=== PATIENT | female | born 1965 | race Caucasian/White ===

== ENCOUNTER 2018-12-10 18:31 | Observation (INO) | payer OTHER ==
[2018-12-10 19:00] LABS: PLATELET COUNT 309 10^3/uL (150-400)
--- NOTE | 2018-12-10 19:05 | EDPHY ---
H & P Stated Complaint: Heart "fluttering" x2D, worse today c weaknees/dizziness. Time Seen by Provider: 12/10/18 18:50 HPI/ROS: CHIEF COMPLAINT: Heart fluttering HISTORY OF PRESENT ILLNESS: Patient is a 53-year-old female though significant past medical history comes to the emergency department complaining that her heart has been fluttering for the last several days. She has had this before and has explored the wearing Holter monitor but has not yet done that. She states that her symptoms have worsened over last few days and that she feels like her heart is skipping beats. Today while driving she felt presyncopal and felt like she was going to crash her car but her symptoms resolved by simply rolling down her windows in taking a deep breath. No headache. No chest pain. No shortness of breath. No focal weakness or deficits. No GI symptoms. Severity: Moderate Modifying factors: Continued REVIEW OF SYSTEMS: Constitutional: denies: chills, fever, recent illness, recent injury EENTM: denies: blurred vision, double vision, nose congestion Respiratory: denies: cough, shortness of breath Cardiac: See HPI Gastrointestinal/Abdominal: denies: abdominal pain, diarrhea, nausea, vomiting, blood streaked stools Genitourinary: denies: dysuria, frequency, hematuria, pain Musculoskeletal: denies: joint pain, muscle pain Skin: denies: lesions, rash, jaundice, bruising Neurological: denies: headache, numbness, paresthesia, tingling, dizziness, weakness Hematologic/Lymphatic: denies: blood clots, easy bleeding, easy bruising Immunologic/allergic: denies: HIV/AIDS, transplant 10 systems reviewed and negative except as noted EXAM: GENERAL: Well-appearing, well-nourished and in no acute distress. HEAD: Atraumatic, normocephalic. EYES: Pupils equal round and reactive to light, extraocular movements intact, sclera anicteric, conjunctiva are normal. ENT: TMs normal, nares patent, oropharynx clear without exudates. Moist mucous membranes. NECK: Normal range of motion, supple without lymphadenopathy or JVD. LUNGS: Breath sounds clear to auscultation bilaterally and equal. No wheezes rales or rhonchi. HEART: Regular rate and rhythm without murmurs, rubs or gallops. ABDOMEN: Soft, nontender, normoactive bowel sounds. No guarding, no rebound. No masses appreciated. BACK: No CVA tenderness, no spinal tenderness, step-offs or deformities EXTREMITIES: Normal range of motion, no pitting or edema. No clubbing or cyanosis. NEUROLOGICAL: Cranial nerves II through XII grossly intact. Normal speech, normal gait. 5/5 strength, normal movement in all extremities, normal sensation , normal reflexes PSYCH: Normal mood, normal affect. SKIN: Warm, dry, normal turgor, no visible rashes or lesions. Source: Patient Exam Limitations: No limitations - Personal History Current Tetanus/Diphtheria Vaccine: Yes - Medical/Surgical History Hx Asthma: No Hx Chronic Respiratory Disease: No Hx Diabetes: No Hx Cardiac Disease: No Hx Renal Disease: No Hx Cirrhosis: No Hx Alcoholism: No Hx HIV/AIDS: No Hx Splenectomy or Spleen Trauma: No Other PMH: Appendectomy, - Social History Smoking Status: Former smoker Alcohol Use: None Constitutional: Initial Vital Signs Temperature (C) 36.5 C 12/10/18 18:37 Heart Rate 83 12/10/18 18:37 Respiratory Rate 18 12/10/18 18:37 Blood Pressure 117/97 H 12/10/18 18:37 O2 Sat (%) 97 12/10/18 18:37 O2 Delivery Mode Room Air Allergies/Adverse Reactions: oxycodone Allergy (Verified 12/10/18 18:37) Medical Decision Making - Diagnostics EKG Interpretation: An EKG obtained and was read and documented in trace view. Please see trace view for full reading and report. Sinus rhythm, no acute ischemic changes or pre-excitation. Imaging Results: Imaging Impressions Chest X-Ray 12/10/18 18:54 Impression: No acute pulmonary disease. Imaging: Discussed imaging studies w/ audio video mechanic Radiologist ED Course/Re-evaluation: While talking with the patient and her family she had several PVCs on the monitor. She felt every single 1 of these and mentioned them. She states that these correlate exactly with her symptoms. We discussed the fact that these are benign a but she could be having other arrhythmia is as well that could have caused her presyncopal symptoms earlier today. Will check lab work and x- ray as well. 7:54 p.m. patient's lab work and x-ray are reassuring. She feels reassured. She is having much fewer PVCs than when she 1st arrived. She feels comfortable going home. We discussed indications for returning. I discouraged caffeine or stimulants. She has a Holter monitor at home that she will start wearing tomorrow. 8:20 p.m. I got a call from Dr. Arce who requested the patient be admitted on the monitor to see if they catch any other more dangerous arrhythmias. The patient unfortunately had already been discharged. I did find her and her in the hallway as they were preparing to leave and offered admission for monitoring and discussed Dr. Arce's recommendations. She however was very eager to go home and states that she will put the Holter monitor on tomorrow and follow up in the office. She declines admission. 8:[address] Arce had texted her and told her to come back to the ER and get admitted. She is in agreement. I spoke with Dr. Smith who will admit. Differential Diagnosis: Partial list of the Differential diagnosis considered include but were not limited to; PVC, SVT, AFib, dehydration, electrolyte abnormality and although unlikely based on the history and physical exam, I also considered infection, acute coronary disease, PE, pneumonia. I discussed these differential diagnoses and the plan with the patient as well as the usual and expected course. The patient understands that the diagnosis is provisional and that in medicine we are not always correct and that further workup is often warranted. Usual and customary warnings were given. All of the patient's questions were answered. The patient was instructed to return to the emergency department should the symptoms at all worsen or return, otherwise to followup with the physician as we discussed. - Data Points Laboratory Results: Laboratory Results 12/10/18 18:50 12/10/18 18:50 12/10/18 12/10/18 12/10/18 19:20 18:50 18:50 WBC RBC Hgb Hct MCV MCH MCHC RDW Plt Count MPV Neut % (Auto) Lymph % (Auto) [place] % (Auto) Eos % (Auto) Baso % (Auto) Nucleat RBC Rel Count Absolute Neuts (auto) Absolute Lymphs (auto) Absolute Monos (auto) Absolute Eos (auto) Absolute Basos (auto) Absolute Nucleated RBC Immature Gran % Immature Gran # Sodium 136 mEq/L mEq/L (135-145) Potassium 3.5 mEq/L mEq/L (3.5-5.2) Chloride 104 mEq/L mEq/L (97-110) Carbon Dioxide 23 mEq/l mEq/l (22-31) Anion Gap 9 mEq/L mEq/L (6-14) BUN 14 mg/dL mg/dL (7-23) Creatinine 0.8 mg/dL mg/dL (0.6-1.0) Estimated GFR > 60 Glucose 98 mg/dL mg/dL (70-100) Calcium 9.6 mg/dL mg/dL (8.5-10.4) POC Troponin I 0.00 ng/mL ng/mL (0.00-0.08) TSH 1.990 uIU/mL uIU/mL (0.465-4.680) Free T4 0.94 ng/dL ng/dL (0.59-2.19) 12/10/18 18:50 WBC 7.07 10^3/uL 10^3/uL (3.80-9.50) RBC 4.05 10^6/uL L 10^6/uL (4.18-5.33) Hgb 13.1 g/dL g/dL (12.6-16.3) Hct 38.0 % % (38.0-47.0) MCV 93.8 fL fL (81.5-99.8) MCH 32.3 pg pg (27.9-34.1) MCHC 34.5 g/dL g/dL (32.4-36.7) RDW 12.7 % % (11.5-15.2) Plt Count 309 10^3/uL 10^3/uL (150-400) MPV 8.9 fL fL (8.7-11.7) Neut % (Auto) 55.0 % % (39.3-74.2) Lymph % (Auto) 35.2 % % (15.0-45.0) [place] % (Auto) 7.5 % % (4.5-13.0) Eos % (Auto) 1.4 % % (0.6-7.6) Baso % (Auto) 0.6 % % (0.3-1.7) Nucleat RBC Rel Count 0.0 % % (0.0-0.2) Absolute Neuts (auto) 3.89 10^3/uL 10^3/uL (1.70-6.50) Absolute Lymphs (auto) 2.49 10^3/uL 10^3/uL (1.00-3.00) Absolute Monos (auto) 0.53 10^3/uL 10^3/uL (0.30-0.80) Absolute Eos (auto) 0.10 10^3/uL 10^3/uL (0.03-0.40) Absolute Basos (auto) 0.04 10^3/uL 10^3/uL (0.02-0.10) Absolute Nucleated RBC 0.00 10^3/uL 10^3/uL (0-0.01) Immature Gran % 0.3 % % (0.0-1.1) Immature Gran # 0.02 10^3/uL 10^3/uL (0.00-0.10) Sodium Potassium Chloride Carbon Dioxide Anion Gap BUN Creatinine Estimated GFR Glucose Calcium POC Troponin I TSH Free T4 Point of Care Test Results: Chemistry 12/10/18 19:20 POC Troponin I 0.00 ng/mL ng/mL (0.00-0.08) Departure - Departure Disposition: [facility] Inpatient Acute Clinical Impression: Premature ventricular contractions, Palpitations Condition: Fair
--- NOTE | 2018-12-10 19:06 | CPEKG ---
Test Reason : OPEN Blood Pressure : / mmHG Vent. Rate : 072 BPM Atrial Rate : 072 BPM P-R Int : 137 ms QRS Dur : 089 ms QT Int : 387 ms P-R-T Axes : 057 065 039 degrees QTc Int : 424 ms Sinus rhythm Confirmed by Cory Chawla ([id number]) on 12/10/2018 7:05:43 PM Referred By: Cory Chawla Confirmed By:oCry Chawla
[2018-12-10] MEDS ORDERED: LORazepam 0.5 MG TAB PO PRN (22:10)
[2018-12-10] MEDS ORDERED: ONDANSETRON DISINTEGRATING 4 MG TAB PO PRN (22:10)
[2018-12-10] MEDS ORDERED: HYDROCODONE/APAP 5/325 TAB PO PRN (22:10)
[2018-12-10] MEDS ORDERED: ONDANSETRON 4 MG/2 ML VIAL IVP PRN (22:10)
[2018-12-10] MEDS ORDERED: ACETAMINOPHEN 325 MG TAB PO PRN (22:10)
[2018-12-10] MEDS ORDERED: LUBIPROSTONE 8 MCG CAP PO PRN (22:12)
[2018-12-10] MEDS ORDERED: ZOLPIDEM TARTRATE 5 MG TAB PO PRN (22:12)
--- NOTE | 2018-12-10 22:13 | PDGENHP ---
History and Physical - Chief Complaint heart palpitations, near syncope - History of Present Illness Patient is a 53 yo F with no signficant PMH who presents to the ER with complaints of nearly 4 years of near syncope/dizziness episodes and nearly 5 months of frequent palpitations, more frequent today. She was seen in the ER and noted to have frequent PVCs correlating with her symptoms perfectly. She is a cousin of Dr. Arce who strongly recommended she remain overnight for further evaluation, initially she opted to discharge and left to the waiting room, but on further discussion with ER doctor and Dr. Arce, she did agree to remain overnight. She is somewhat upset around the near discharge and return and somewhat tearful about it, but is amenable to staying. She notes that her palpitations have been much worse in the last day and have been overall increasing in frequency. She was having about one episode every minute or two in the ER while on monitor, and each symptom correlated with a PVC. She notes she does not typically have a lot of stress in her life, but the last couple of days have been more stressful with a difficult travel experience with her father. She has not fainted, she does not have chest pain with these palpitations but they are distressing as they make her feel as if she needs to take a deep breath and 'reset.' She has never had an echocardiogram. She does have a 2 week heart monitor at home that she has not yet placed. History Information - Allergies/Home Medication List Allergies/Adverse Reactions: oxycodone Allergy (Verified 12/10/18 21:28) Itching Home Medications: Loratadine [Claritin 10 mg] 20 mg PO DAILY 12/10/18 [Last Taken Unknown] Lubiprostone [Amitiza 8 mcg (*)] 8 mcg PO DAILY PRN 12/10/18 [Last Taken Unknown ] Melatonin [Melatonin 5 mg] 5 mg PO HS PRN 12/10/18 [Last Taken Unknown] Prednisone Unk Dose DAILY PRN 12/10/18 [Last Taken Unknown] Zolpidem Tartrate [Ambien] 2.5 mg PO HS PRN 12/10/18 [Last Taken Unknown] I have personally reviewed and updated: family history, medical history, social history, surgical history - Past Medical History Additional medical history: seasonal allergies. chronic constipation - Surgical History Reports: appendectomy - Family History Positive for: non-pertinent - Social History Smoking Status: Former smoker Alcohol Use: Occasionally Drug Use: None Additional social history: , lives with Review of Systems Review of Systems: ROS: 10pt was reviewed & negative except for what was stated in HPI & below Physical Exam Physical Exam: Temp Pulse Resp BP Pulse Ox 36.7 C 78 18 122/83 H 95 12/10/18 20:16 12/10/18 22:05 12/10/18 22:05 12/10/18 22:05 12/10/18 22:05 Constitutional: no apparent distress, appears nourished Eyes: PERRL, anicteric sclera Ears, Nose, Mouth, Throat: moist mucous membranes, hearing normal Cardiovascular: regular rate and rhythym, no murmur, rub, or gallop, other ( frequent skipped beats correlating with pvcs) Respiratory: no respiratory distress, no rales or rhonchi, clear to auscultation Gastrointestinal: normoactive bowel sounds, soft, non-tender abdomen Genitourinary: no bladder tenderness Skin: warm, normal color Musculoskeletal: full muscle strength Neurologic: AAOx3 Psychiatric: interacting appropriately, not anxious, not encephalopathic Lab Data & Imaging Review 12/10/18 18:50 12/10/18 18:50 WBC 7.07 10^3/uL (3.80-9.50) 12/10/18 18:50 RBC 4.05 10^6/uL (4.18-5.33) L 12/10/18 18:50 Hgb 13.1 g/dL (12.6-16.3) 12/10/18 18:50 Hct 38.0 % (38.0-47.0) 12/10/18 18:50 MCV 93.8 fL (81.5-99.8) 12/10/18 18:50 MCH 32.3 pg (27.9-34.1) 12/10/18 18:50 MCHC 34.5 g/dL (32.4-36.7) 12/10/18 18:50 RDW 12.7 % (11.5-15.2) 12/10/18 18:50 Plt Count 309 10^3/uL (150-400) 12/10/18 18:50 MPV 8.9 fL (8.7-11.7) 12/10/18 18:50 Neut % (Auto) 55.0 % (39.3-74.2) 12/10/18 18:50 Lymph % (Auto) 35.2 % (15.0-45.0) 12/10/18 18:50 [place] % (Auto) 7.5 % (4.5-13.0) 12/10/18 18:50 Eos % (Auto) 1.4 % (0.6-7.6) 12/10/18 18:50 Baso % (Auto) 0.6 % (0.3-1.7) 12/10/18 18:50 Nucleat RBC Rel Count 0.0 % (0.0-0.2) 12/10/18 18:50 Absolute Neuts (auto) 3.89 10^3/uL (1.70-6.50) 12/10/18 18:50 Absolute Lymphs (auto) 2.49 10^3/uL (1.00-3.00) 12/10/18 18:50 Absolute Monos (auto) 0.53 10^3/uL (0.30-0.80) 12/10/18 18:50 Absolute Eos (auto) 0.10 10^3/uL (0.03-0.40) 12/10/18 18:50 Absolute Basos (auto) 0.04 10^3/uL (0.02-0.10) 12/10/18 18:50 Absolute Nucleated RBC 0.00 10^3/uL (0-0.01) 12/10/18 18:50 Immature Gran % 0.3 % (0.0-1.1) 12/10/18 18:50 Immature Gran # 0.02 10^3/uL (0.00-0.10) 12/10/18 18:50 Sodium 136 mEq/L (135-145) 12/10/18 18:50 Potassium 3.5 mEq/L (3.5-5.2) 12/10/18 18:50 Chloride 104 mEq/L (97-110) 12/10/18 18:50 Carbon Dioxide 23 mEq/l (22-31) 12/10/18 18:50 Anion Gap 9 mEq/L (6-14) 12/10/18 18:50 BUN 14 mg/dL (7-23) 12/10/18 18:50 Creatinine 0.8 mg/dL (0.6-1.0) 12/10/18 18:50 Estimated GFR > 60 12/10/18 18:50 Glucose 98 mg/dL (70-100) 12/10/18 18:50 Calcium 9.6 mg/dL (8.5-10.4) 12/10/18 18:50 POC Troponin I 0.00 ng/mL (0.00-0.08) 12/10/18 19:20 TSH 1.990 uIU/mL (0.465-4.680) 12/10/18 18:50 Free T4 0.94 ng/dL (0.59-2.19) 12/10/18 18:50 Visualized and Interpreted Chest x-ray results: Yes Chest X-Ray results: no infiltrate Visualized and Interpreted EKG results: Yes EKG Interpretation: Positive for: normal sinsus rhythm Assessment & Plan Assessment: Premature ventricular contractions (Acute) Palpitations (Acute) 53 yo F with no significant PMH presenting with complaints of increasing heart palpitations and near syncope # heart palpitations: in ER has been consistently correlating with episodes of PVCs on monitor, though quite frequent since she has been here. Not exertional and not clearly related to anything particular but increasing. Will monitor on tele, will get troponin, will get echo in am and request cardiology evaluate her. She is followed by Dr. Arce and he did recommend that she be evaluated further in house. TSH/FT4 are wnl. # near syncope: these episodes are not always correlated to above and have been present x 5 years, w/u as above, will get orthostatic vital signs as well # seasonal allergies: continue claritin # constipation: continue amitiza as needed # observation status Patient new to my care. Old records reviewed and summarized as above. Care plan reviewed with ER doctor, further hx obtained from present at bedside.
[2018-12-11] MEDS ORDERED: CETIRIZINE 10 MG TAB PO SCH (09:00)
--- NOTE | 2018-12-11 12:10 | ECHO ---
[email or web address] [address] Main: [phone] Echocardiography Examination Transthoracic Name: SWETHA BRADFORD MR#: [id number] Study Date: 12/11/2018 Study Time: 08:40 AM Date of : 1965 Age: 53 year(s) Height: 167.6 cm (66 in.) Weight: 58.97 kg (130 lb.) BSA: 1.67 m2 Gender: Female Examination: Echo Contrast: Image Quality: Adequate Rhythm: Heart Rate: BP: 98 mmHg/70 mmHg Indication: Palpatations/near syncope x 1 year/frequent PVC's Procedure Staff Referring Physician: Verifier Operator: Rossi Ordonez RDCS Reading Physician: Clifton Albert MD Requesting Provider: Indication: Palpatations/near syncope x 1 year/frequent PVC's Measurements Chambers AV/MV Label Value Normal Value Label Value Normal Value EF lower range (%) 65 % AV PGmax 6 mmHg EF upper range (%) 70 % AV PGmean 3 mmHg IVSd, 2D 0.6 cm (0.6cm - 1.1cm) AV Vmax 1.2 m/s LVDd, 2D 4.3 cm (3.9cm - 5.3cm) MV A Vmax 0.7 m/s LVDs, 2D 2.6 cm (2.1cm - 4cm) MV E' lateral 0.08 m/s LVEF, 2D 69 % (54% - 74%) MV E' mean 0.1 m/s LVEF, MOD2 79 % (55% - 70%) MV E' septal 0.11 m/s LVEF, MOD4 64 % (55% - 70%) MV E Vmax 0.89 m/s LVPWd, 2D 0.7 cm MV E/A 1.27 LA Area, A2C 12.5 cm2 (0cm2 - 20cm2) MV E/E' lateral 11.1 LA Volume, A2C 27 ml (22ml - 52ml) MV E/E' mean 9.37 LA Volume, A4C 24 ml (22ml - 52ml) MV E/E' septal 8.2 (0.5 - 1.7) LA Volume, BP 27 ml (22ml - 52ml) LAD Index, 2D 1.92 cm/m2 LADs, 2D 3.2 cm (2.7cm - 3.8cm) LAESV index, MOD4 14.4 ml/m2 Additional Vessels Label Value Normal Value AoAsc 3.4 cm AoRoot, MM 3.3 cm (2.2cm - 3.7cm) Patient: SWETHA BRADFORD Study Date: 12/11/2018 Page 1 of 3 08:40 AM Conclusions Left Ventricle: Normal global systolic left ventricular function. EF range is estimated at 65 % - 70 %. Mitral Valve: Mild mitral regurgitation. Tricuspid Valve: Trivial tricuspid regurgitation. Pulmonary artery pressure normal. Findings Left Ventricle: Left ventricle is normal in size. Normal global systolic left ventricular function. The ejection fraction, measured by MOD4, is 64 %. EF range is estimated at 65 % - 70 %. Left ventricle wall thickness is normal. There are no regional wall motion abnormalities. Left ventricular diastolic function parameters are normal. IVS: The septum is intact. Right Ventricle: Normal size right ventricle. Right ventricular wall thickness is normal. Right ventricular systolic function is normal. Left Atrium: The left atrium is normal in size. IAS: Normal appearing atrial septum. Right Atrium: The right atrium is normal in size. Mitral Valve: Mild mitral regurgitation. No mitral valve stenosis. There is mild mitral calcification. Aortic Valve: Aortic leaflets exhibit normal cuspal separation. No aortic valve regurgitation. There is no aortic stenosis. Tricuspid Valve: Tricuspid valve leaflets are normal in appearance and function. Trivial tricuspid regurgitation. No tricuspid valve stenosis. Pulmonary artery pressure normal. Pulmonic Valve: Pulmonic valve is poorly visualized. Pulmonic leaflets exhibit normal cuspal separation. Trivial pulmonic valve regurgitation is present. There is no pulmonic valve stenosis. Aorta: The aorta is normal. The aortic root size in M-mode measures 3.3 cm. The ascending aorta measures 3.4 cm. Aorta Measurements AoRoot, MM is 3.3 cm. Pulmonary Artery: The pulmonary artery morphology appears normal. IVC: The inferior vena cava is normal in size and course. Pericardium: A pericardial fat pad is present. No pericardial effusion. No pleural effusion present. Exam Details Procedure Ordered: Echo Procedure Status: Routine study Patient: SWETHA BRADOFRD Study Date: 12/11/2018 Page 2 of 3 08:40 AM Image Quality: Adequate Facility Location: Cardiac Echo 1 (No Signature Object) Patient: SWETHA BRADFORD Study Date: 12/11/2018 Page 3 of 3 08:40 AM [id number]
[2018-12-11 12:31] VITALS: BP 109/75
--- NOTE | 2018-12-11 12:43 | PDCARPN ---
Cardiology Progress Note Chief Complaint: PVCs, pre-syncope Assessment/Plan: Assessment: 1. Palpitations: correlated with isolated, unifocal PVCs on telemetry. Increased frequency over the past 6 months or so without other associated symptoms. Echo demonstrates normal LVEF. Normal laboratory studies including CBC , BMP, and troponin. No family history of SCD or unexplained trauma. 2. Pre-syncope: 2-3 episodes of pre-syncope occurring while driving. Described as sudden onset of clamminess, lightheadedness, and near fainting. Unclear etiology. Plan: We had a complex discussion regarding options for further evaluation of PVCs and pre-syncope, including extended ECG monitoring with Holter/Zio vs. implanted loop recorder vs. EP study +/- PVC ablation. Given that Marcia's pre-syncope does not clearly correlate with her unifocal PVCs, she would like to proceed with implantation of a LINQ monitor. This will be completed today. She verbalizes understanding that this option carries increased risk compared to EP study with regards to the possibility for injury or resulting from undiagnosed life-threatening of hemodynamically unstable arrhythmia. Following ILR implant, Marcia is appropriate and stable for discharge home today from a cardiovascular standpoint. 12/11/18 12:44 Subjective: Decreased palpitations compared to yesterday. No issues overnight. No cardiovascular symptoms at present. Reviewed/Discussed With: multidisciplinary team Time Spent with Patient: greater than 25 minutes Time Spent with Patient: Greater than 25 minutes spent on this patients care, greater than 50% of time spent counseling, educating, and coordinating care regarding the above mentioned plan. Objective: Vital Signs (8 Hrs) Temp Pulse Pulse Pulse Pulse Resp BP 12/11/18 12:00 36.4 C 74 16 109/75 12/11/18 07:24 36.5 C 64 18 98/70 L 12/11/18 06:29 77 93 69 12/11/18 05:02 36.9 C 72 16 98/65 L BP BP BP Pulse Ox 12/11/18 12:00 97 12/11/18 07:24 95 12/11/18 06:29 91/65 L 87/68 L 93/62 L 12/11/18 05:02 95 Intake/Output (24 Hrs) 12/10/18 12/11/18 12/12/18 05:59 05:59 05:59 Intake Total 200 Balance 200 Intake: Oral (ml) 200 Other: Weight 58.967 kg Result Diagrams: 12/10/18 18:50 12/10/18 18:50 Cardiac Labs: Cardiac Lab Results (72 Hrs) 12/11/18 12/10/18 03:20 23:40 Troponin I < 0.012 < 0.012 - Physical Exam Constitutional: WDWN, healthy appearing, no apparent distress Ears, Nose, Mouth, Throat: moist mucous membranes, no oral ulcers, no thrush Cardiovascular: regular rate and rhythm, no murmurs, no rubs, no gallops Peripheral Pulses: 2+: dorsalis-pedis (R), dorsalis-pedis (L) Respiratory: clear to auscultate bilat, no crackles, no wheezes Neurologic: AAOx3, CN II-XII grossly intact Psychiatric: cooperative, interactive, following commands, not anxious ICD10 Worksheet Patient Problems: Problems Problem Status Onset Palpitations Acute Premature ventricular contractions Acute
--- NOTE | 2018-12-11 13:00 | CPEKG ---
Test Reason : OPEN Blood Pressure : / mmHG Vent. Rate : 085 BPM Atrial Rate : 084 BPM P-R Int : 156 ms QRS Dur : 087 ms QT Int : 376 ms P-R-T Axes : 083 089 061 degrees QTc Int : 447 ms Sinus rhythm Confirmed by Salvatore Wyatt ([id number]) on 12/11/2018 1:00:08 PM Referred By: Lenny Arce Confirmed By:Salvatore Wyatt
--- NOTE | 2018-12-11 13:00 | PDGENHP ---
History & Physical Chief Complaint: PVCs, pre-syncope History of Present Illness: 2 concerning episodes of pre-syncope while driving, unclear etiology. Relevant Physical Exam: A&Ox4, no apparent distress, lungs CTA, cardiac regular rate and rhythm, S1, S2 Cardiorespiratory Assessment: Proceed with ILR implant as planned for today
[2018-12-11] MEDS ORDERED: LIDOCAINE 1% 300 MG/30 ML SDV ONE (14:55)
--- NOTE | 2018-12-11 15:45 | ASMTCMCOM ---
CM Note CM Note Notes: Pt is a 53 y/o female admitted for palpitations and presyncope. Pt will most likely d/c independent when medically stable. No therapies ordered at this time. CM available for changes. Plan: Independent Date Signed: 12/11/2018 03:44 PM Electronically Signed By:PEDRO LUIS Giraldo
[2018-12-11] MEDS ORDERED: MELATONIN 3 MG TAB PO PRN (22:12)
== END 2018-12-11 18:00 | disposition home or self-care (01) ==
LOC: F2W 22:09
PROVIDERS: ADMIT Internal Medicine; ATTEND Internal Medicine Cardiovascular Disease
PROC: 0JH602Z Insertion of Monitoring Device into Chest Subcutaneous Tissue and Fascia, Open Approach (ICD-10-PCS; principal; 2018-12-10)
DX: I49.3 Ventricular premature depolarization (principal); R00.2 Palpitations; R55 Syncope and collapse; Z87.891 Personal history of nicotine dependence; K59.09 Other constipation
CPT/HCPCS: 33285; 71046; 93005; 93306; 99285; G0378; 84484-ER; C1764

== ENCOUNTER → 2019-01-30 | Outpatient (CLI) | payer OTHER | LOC: FIMAGING 08:41 | PROVIDERS: ATTEND Internal Medicine | DX: R10.32 Left lower quadrant pain (principal) ==

== ENCOUNTER → 2019-03-04 | Outpatient (CLI) | payer OTHER | LOC: FIMAGING 09:43 ==

== ENCOUNTER → 2019-03-15 | Outpatient (CLI) | payer OTHER | LOC: FCPNEURO 09:51 ==